=== PATIENT | female | born 1950 | race Caucasian/White ===

== ENCOUNTER → 2017-02-17 | Outpatient (CLI) | payer MEDICARE ==
[~2017-02-17] MED LIST: REGADENOSON 0.4 MG/5 ML SYRINGE ONE
== END | disposition home or self-care (01) ==
LOC: CFH 08:04
PROVIDERS: ATTEND Internal Medicine
DX: R07.9 Chest pain, unspecified (principal); R06.02 Shortness of breath; E11.40 Type 2 diabetes mellitus with diabetic neuropathy, unspecified; I10 Essential (primary) hypertension
CPT/HCPCS: 78452; 93017; A9502; J2785

== ENCOUNTER → 2017-08-18 | Outpatient (CLI) | payer MEDICARE | END | disposition home or self-care (01) | LOC: CFH 12:25 | PROVIDERS: ATTEND Psychiatry & Neurology Neurology | DX: M47.22 Other spondylosis with radiculopathy, cervical region (principal); M48.02 Spinal stenosis, cervical region; M43.16 Spondylolisthesis, lumbar region; M48.061 Spinal stenosis, lumbar region without neurogenic claudication; M51.26 Other intervertebral disc displacement, lumbar region | CPT/HCPCS: 72141; 72148 ==

== ENCOUNTER → 2019-05-07 | Outpatient (CLI) | payer MEDICARE | END | disposition home or self-care (01) | LOC: CLISVCS 07:32 | PROVIDERS: ATTEND Internal Medicine Cardiovascular Disease | DX: I34.0 Nonrheumatic mitral (valve) insufficiency (principal); R60.0 Localized edema; I87.2 Venous insufficiency (chronic) (peripheral); E66.9 Obesity, unspecified; Z87.891 Personal history of nicotine dependence | CPT/HCPCS: 93306; 93356; 93970 ==

== ENCOUNTER → 2019-12-28 | Outpatient (CLI) | payer MEDICARE | END | disposition home or self-care (01) | LOC: CFH 10:38 | PROVIDERS: ATTEND Internal Medicine | DX: G31.89 Other specified degenerative diseases of nervous system (principal); D17.0 Benign lipomatous neoplasm of skin and subcutaneous tissue of head, face and neck | CPT/HCPCS: 70450; 93880 ==

== ENCOUNTER → 2020-06-23 | Outpatient (CLI) | payer MEDICARE | END | disposition home or self-care (01) | LOC: CFH 10:11 | DX: Z12.31 Encounter for screening mammogram for malignant neoplasm of breast (principal); Z12.2 Encounter for screening for malignant neoplasm of respiratory organs; Z13.820 Encounter for screening for osteoporosis; Z87.891 Personal history of nicotine dependence; N95.9 Unspecified menopausal and perimenopausal disorder; M85.88 Other specified disorders of bone density and structure, other site; R91.8 Other nonspecific abnormal finding of lung field; I25.10 Atherosclerotic heart disease of native coronary artery without angina pectoris; K80.20 Calculus of gallbladder without cholecystitis without obstruction; I70.0 Atherosclerosis of aorta; M51.34 Other intervertebral disc degeneration, thoracic region; J98.4 Other disorders of lung | CPT/HCPCS: 71271; 77063; 77067; 77080 ==

== ENCOUNTER 2020-12-25 07:13 | Outpatient (CLI) | payer MEDICARE ==
[2020-12-25 07:52] LABS: BASOPHILS % (AUTO) 1 % (0-1); EOSINOPHILS % (AUTO) 3 % (1-7); LYMPHOCYTES % (AUTO) 19 % (22-44); MEAN CORPUSCULAR HEMOGLOBIN 25.4 pg (27.0-34.8); MEAN CORPUSCULAR HGB CONC 32.4 g/dL (32.4-35.8); MEAN PLATELET VOLUME 8.4 fL (7.4-10.4); MICROSCOPIC NOT IND; MONOCYTES % (AUTO) 5 % (2-9); NEUTROPHILS % (AUTO) 72 % (42-75); PLATELET COUNT 262 x10^3/uL (130-400); RED BLOOD COUNT 4.75 x10^6/uL (3.82-5.3); RED CELL DISTRIBUTION WIDTH 21.3 % (9.6-15.2)
[2020-12-25 08:02] LABS: ALBUMIN 3.6 g/dL (3.4-5.0); ANION GAP 5 mmol/L (5-15); CHLORIDE 105 mmol/L (98-107)
[2020-12-25 08:08] LABS: % IRON SATURATION 9 % (20-55); CREATININE 1.28 mg/dL (0.55-1.02); IRON LEVEL 42 mcg/dL (50-170); TOTAL IRON BINDING CAPACITY 450 mcg/dL (250-450)
[2020-12-25 08:11] LABS: CREATININE,URINE RANDOM 88.8 mg/dL
[2020-12-25 09:00] LABS: ANISOCYTOSIS 1+; MICROCYTOSIS 1+
[2020-12-25 09:01] LABS: <PLATELET ESTIMATE> ADEQUATE; <PLT MORPHOLOGY> NORMAL PLT MORPH; OVALOCYTES 1+
== END 2020-12-25 23:59 | disposition home or self-care (01) ==
LOC: LAB 07:13
PROVIDERS: ATTEND Nurse Practitioner
DX: E11.22 Type 2 diabetes mellitus with diabetic chronic kidney disease (principal); N18.30 Chronic kidney disease, stage 3 unspecified; E55.9 Vitamin D deficiency, unspecified; E78.5 Hyperlipidemia, unspecified; K21.9 Gastro-esophageal reflux disease without esophagitis
CPT/HCPCS: 36415; 80069; 81003; 82043; 82306; 82310; 82570; 82728; 83036; 83540; 83550; 83735; 83970; 84156; 84550; 85025